=== PATIENT | male | born 1960 | race Caucasian/White ===

== ENCOUNTER 2022-03-22 07:50 | Inpatient (IN) | payer MEDICARE, OTHER ==
[~2022-03-22] VITALS: Ht 188 cm; Wt 81.8 kg
[2022-03-22 11:02] LABS: BASOPHILS # (AUTO) 0.1 X10'3 (0-0.2); BASOPHILS % (AUTO) 1.9 % (0-1); EOSINOPHILS # (AUTO) 0.1 X10'3 (0-0.9); EOSINOPHILS % (AUTO) 3.7 % (0-6); HEMATOCRIT 38.9 % (42.0-52.0); HEMOGLOBIN 13.7 g/dl (14.0-17.9); LYMPHOCYTES # (AUTO) 0.6 X10'3 (1.1-4.8); MEAN CORPUSCULAR HEMOGLOBIN 29.2 PG (27.0-31.0); MEAN CORPUSCULAR HGB CONC 35.2 g/dL (33.0-36.5); MONOCYTES # (AUTO) 0.4 X10'3 (0-0.9); MONOCYTES % (AUTO) 10.2 % (2-12); NEUTROPHILS # (AUTO) 2.8 X10'3 (1.8-7.7); NEUTROPHILS % (AUTO) 70.2 % (42-75); PLATELET COUNT 225 X10'3 (140-440); RED BLOOD COUNT 4.68 X10'6 (4.70-6.10); RED CELL DISTRIBUTION WIDTH 13.7 % (11.5-14.5); WHITE BLOOD COUNT 3.9 X10'3 (4.5-11.0)
[2022-03-22 11:23] LABS: APTT 26 SECONDS (22-32)
[2022-03-22 11:25] LABS: ALANINE AMINOTRANSFERASE 14 U/L (12-78); ALBUMIN 3.1 G/DL (3.4-5.0); ALBUMIN/GLOBULIN RATIO 0.9 (1.1-1.5); ALKALINE PHOSPHATASE 122 IU/L (46-116); ANION GAP 3 (8-16); ASPARTATE AMINO TRANSFERASE 19 U/L (10-37); BILIRUBIN,TOTAL 0.6 MG/DL (0.1-1.0); BLOOD UREA NITROGEN 27 MG/DL (7-18); BUN/CREATININE RATIO 15.5 (5.4-32.0); CALCIUM 8.9 MG/DL (8.5-10.1); CHLORIDE 107 MMOL/L (99-107); CREATINE KINASE 31 U/L (39-308); CREATININE 1.74 MG/DL (0.60-1.10); GLUCOSE 133 MG/DL (70-104); POTASSIUM 4.1 MMOL/L (3.5-5.1); SODIUM 139 MMOL/L (135-145); TOTAL CARBON DIOXIDE 29.3 MMOL/L (24-32); TOTAL PROTEIN 6.7 G/DL (6.4-8.2); eGFR 40 ML/MIN
[2022-03-22] MEDS ORDERED: heparin 10,000 units/1 ML INJ IV PRN ×2 (12:55→15:35)
[2022-03-22] MEDS ORDERED: heparin 10,000 units/1 ML INJ IV ONE ×2 (12:55→15:35)
[2022-03-22] MEDS ORDERED: iohexol 350MG/ML 100ml bottle IV ONE (12:59)
[2022-03-22] MEDS: heparin 25,000 UNIT/250ml bag 250 ML IV SCH (14:32)
[2022-03-22] MEDS ORDERED: NO HOME MEDS (15:31)
[2022-03-22] MEDS ORDERED: HYDROcodone/acetaminophen 5mg/325mg tablet PO PRN (15:35)
[2022-03-22] MEDS ORDERED: morphine 2 MG/ML inj. syringe IV PRN ×2 (15:35)
[2022-03-22] MEDS ORDERED: magnesium Cl slow-release 64mg tablet PO PRN (15:35)
[2022-03-22] MEDS ORDERED: magnesium hydroxide 30ml (MOM) UD suspension PO PRN (15:35)
[2022-03-22] MEDS ORDERED: acetaminophen 325mg tablet PO PRN ×2 (15:35)
[2022-03-22] MEDS ORDERED: PERFLUTREN PROTEIN-A MICROSPHR (Optison) 0.22 MG/ML 3ML VIAL IV ONE ×2 (15:35→17:25)
[2022-03-22] MEDS ORDERED: POTASSIUM BICARB 20meq eff tab 20 MEQ TABLET.EFF PO PRN ×2 (15:35)
[2022-03-22] MEDS ORDERED: HYDROcodone/acetaminophen 10/325mg tab PO PRN (15:35)
[2022-03-22] MEDS ORDERED: magnesium 4gm in 100ml NS 100 ML IV PRN (15:35)
[2022-03-22] MEDS ORDERED: mag hydrox/Alum hydrox/simeth 30ml oral suspension PO PRN (15:35)
[2022-03-22] MEDS ORDERED: potassium CL 10mEq/100ml bag 100 ML IV PRN (15:35)
[2022-03-22] MEDS ORDERED: ondansetron/PF 4mg/2ml inj IV PRN (15:35)
[2022-03-22] MEDS ORDERED: metoclopramide 5 mg/ml inj IV PRN (15:35)
[2022-03-22] MEDS ORDERED: heparin 25,000 UNIT/250ml bag 250 ML IV SCH (15:35)
[2022-03-22] MEDS ORDERED: bisacodyl 10mg suppository rectal RC PRN (15:35)
[2022-03-22] MEDS ORDERED: magnesium 2GM in 50ml NS 50 ML IV PRN (15:35)
[2022-03-22] MEDS ORDERED: ondansetron 4mg rapidly disintigrating tab PO PRN (15:35)
[2022-03-22] MEDS: potassium Cl 20mEq in NS 1,000 ML IV SCH (15:35)
[2022-03-22 16:14] LABS: HEMOGLOBIN A1C 6.3 % (4.5-6.2)
[2022-03-22 16:24] LABS: MAGNESIUM 1.8 MG/DL (1.5-2.4); POTASSIUM 4.1 MMOL/L (3.5-5.1)
[2022-03-22] MEDS: normal saline 1000ml 1,000 ML IV SCH (17:12)
[2022-03-22] MEDS: docusate sod 100mg capsule PO SCH (20:00)
[2022-03-22] MEDS: K and/or MAG REPLACEMENT MC SCH (20:00)
[2022-03-22 20:40] VITALS: BP 140/69
[2022-03-22] MEDS ORDERED: temazepam 15mg capsule PO PRN (21:00)
[2022-03-23] MEDS: potassium Cl 20mEq in NS 1,000 ML IV SCH (01:35)
[2022-03-23] MEDS: normal saline 1000ml 1,000 ML IV SCH ×2 (02:40→13:31)
[2022-03-23 03:15] LABS: ALANINE AMINOTRANSFERASE 18 U/L (12-78); ALBUMIN 2.7 G/DL (3.4-5.0); ALBUMIN/GLOBULIN RATIO 0.8 (1.1-1.5); ALKALINE PHOSPHATASE 107 IU/L (46-116); ANION GAP 9 (8-16); ASPARTATE AMINO TRANSFERASE 16 U/L (10-37); BILIRUBIN,TOTAL 0.4 MG/DL (0.1-1.0); BLOOD UREA NITROGEN 25 MG/DL (7-18); BUN/CREATININE RATIO 17.6 (5.4-32.0); CALCIUM 8.5 MG/DL (8.5-10.1); CHLORIDE 107 MMOL/L (99-107); CHOL/HDL RATIO 3.5 (0.00-4.99); CHOLESTEROL 183 MG/DL (0-200); CREATININE 1.42 MG/DL (0.60-1.10); GLUCOSE 121 MG/DL (70-104); HDL CHOLESTEROL 53 MG/DL (35-60); LDL CHOLESTEROL 110 MG/DL (50-100); MAGNESIUM 1.9 MG/DL (1.5-2.4); POTASSIUM 3.6 MMOL/L (3.5-5.1); SODIUM 140 MMOL/L (135-145); TOTAL CARBON DIOXIDE 24.2 MMOL/L (24-32); TRIGLYCERIDES 100 MG/DL (20-135); eGFR 50 ML/MIN
--- NOTE | 2022-03-23 04:08 | NUR ---
2000 RC'D REPORT FROM NANCI VALLADARES IN ED AND ASSUMED CARE OF PATIENT WHEN HE ARRIVED ON UNIT. POSITIONED IN BED AND SKIN CHECK DONE. VITAL SIGNS DOCUMENTED. LUE NOTABLY SWOLLEN BUT PATIENT STATES PAIN ONLY 2/10. SOME SCABS NOTED ON L ARM BUT DRY AND NO DRAINAGE. ORIENTED PATIENT TO UNIT AND CALL LIGHT SYSTEM AND CLIPPED TO PATIENT'S GOWN. MRSA SWAB OBTAINED AND SENT TO LAB. ADMISSION ASSMT COMPLETED.
--- NOTE | 2022-03-23 04:13 | NUR ---
PTT DRAWN IN ED RESULTED AT 2019. PATIENT WAS THERAPEUTIC, REDRAWN PER PROTOCOL AT 0220, RESULTED AT 0245 AND THERAPEUTIC AT 46. NEXT BLOOD DRAW TIMED FOR 0900.
[2022-03-23 06:00] VITALS: BP 134/76
--- NOTE | 2022-03-23 06:24 | NUR ---
Problems reprioritized. Patient report given, questions answered & plan of care reviewed with ASTRID PRUITT.
--- NOTE | 2022-03-23 07:03 | NUR ---
Problems reprioritized. Patient report given, questions answered & plan of care reviewed with ASTRID PRUITT.
[2022-03-23] MEDS: heparin 25,000 UNIT/250ml bag 250 ML IV SCH (07:10)
[2022-03-23] MEDS: docusate sod 100mg capsule PO SCH (07:12)
[2022-03-23] MEDS: K and/or MAG REPLACEMENT MC SCH (08:00)
[2022-03-23 09:38] VITALS: BP 109/70
--- NOTE | 2022-03-23 10:46 | NUR ---
called lab to verify ptt is processing, cyndie shea in lab is working on it.
[2022-03-23] MEDS ORDERED: iohexol 300mg/ml 100ml inj. ONE (10:48)
[2022-03-23 11:06] LABS: MEAN PLATELET VOLUME 7.7 FL (7.4-10.4); WHITE BLOOD COUNT 3.6 X10'3 (4.5-11.0)
[2022-03-23 11:08] LABS: HEMATOCRIT 35.3 % (42.0-52.0); HEMOGLOBIN 12.4 g/dl (14.0-17.9); MEAN CORPUSCULAR HEMOGLOBIN 29.1 PG (27.0-31.0); MEAN CORPUSCULAR VOLUME 83.2 FL (78-98); PLATELET COUNT 225 X10'3 (140-440); RED BLOOD COUNT 4.25 X10'6 (4.70-6.10); RED CELL DISTRIBUTION WIDTH 13.8 % (11.5-14.5)
--- NOTE | 2022-03-23 11:35 | NUR ---
Per RN supervisor laboratory animal facility, Heparin stopped for patients CT exam, pts latest PTT results theraputic at 45. Primary rn will resume heparin once patient is back in room.
--- NOTE | 2022-03-23 11:54 | NUR ---
Patient back on floor heparin resumed.
[2022-03-23 12:07] LABS: PLATELET ESTIMATE NORMAL; TOTAL CELLS COUNTED 100
[2022-03-23] MEDS ORDERED: APIX5TAB3 PO (16:50)
--- NOTE | 2022-03-23 18:00 | NUR ---
Patient discharged at 1800 in stable condition. Belongings sent with patient. Iv's removed tip intact no complications. Pt discharged with to home in stable condition.
--- NOTE | 2022-04-01 14:21 | NUR ---
Case Management DC follow up: Spoke with Patient and his via telephone. S/P: Patient Reports:. Denies: Acute/continuous CP, emergent SOB, resp distress, orthopnea, dyspnea, N/V, vertigo, syncope episodes, ALFREDO, blurry vision, s/s of stroke/BE-FAST, bladder pain, dysuria, hematuria, retention,abdominal pain/distention, hematochezia, melena, unexplained bruising, bleeding, fever, chills.However,complains of polyuria, and gel like firmness across his lower abdomen that is new.Verbalizes the swelling at his arm with the DVT has remained the same.Verbalizes he is taking his Eliquis (Apixaban) as ordered.Verbalizes he has not heard from [facility], and unable to secure an appointment with Dr. Mustafa at this time.Verbalizes he and his are driving back to [place] from a visit in [place] .Encouraged Patient to go to a ED while on their way back to [place] and/or return to [facility] ED.Verbalizes their plan is to return to [facility] and have his arm, and lower abdomen assessed. I telephoned [facility], and was apprised they are in the process of accessing Patient's [facility] records via portal. Spoke with Mrs. Nicole, apprised her she should be hearing from [facility] by the end of the week.
--- NOTE | 2022-04-02 10:55 | NUR ---
Case Management DC follow up continued: Spoke with Patient's via telephone this am.Verbalizes her had turned in packet to Dr. Mustafa's office, and was told it would be at least three weeks before he can be seen.I telephoned 's office and explained Patient's current condition and referral from .Apprised Mrs. Nicole 's office will be calling her today to arrange appointment time.
== END 2022-03-23 18:02 | disposition home or self-care (01) | DRG 299 ==
LOC: ER 07:51 → ED HOLD 15:45 → EDBEDREQ 19:29 → ORTHO 4S 20:35
PROVIDERS: ADMIT Family Medicine; ATTEND Family Medicine
PROC: B32T1ZZ Computerized Tomography (CT Scan) of Left Pulmonary Artery using Low Osmolar Contrast (ICD-10-PCS; principal; 2022-03-22)
PROC: B3201ZZ Computerized Tomography (CT Scan) of Thoracic Aorta using Low Osmolar Contrast (ICD-10-PCS; 2022-03-22)
PROC: B32S1ZZ Computerized Tomography (CT Scan) of Right Pulmonary Artery using Low Osmolar Contrast (ICD-10-PCS; 2022-03-22)
PROC: BW2F1ZZ Computerized Tomography (CT Scan) of Neck using Low Osmolar Contrast (ICD-10-PCS; 2022-03-23)
DX: I82.622 Acute embolism and thrombosis of deep veins of left upper extremity (principal); N17.0 Acute kidney failure with tubular necrosis; I12.9 Hypertensive chronic kidney disease with stage 1 through stage 4 chronic kidney disease, or unspecified chronic kidney disease; N18.9 Chronic kidney disease, unspecified; R59.0 Localized enlarged lymph nodes; R73.03 Prediabetes; Z87.891 Personal history of nicotine dependence; Z92.3 Personal history of irradiation; Z72.89 Other problems related to lifestyle
CPT/HCPCS: 36415; 70491; 70553; 71045; 71275; 80053; 80061; 82550; 83036; 83735; 84132; 84443; 85007; 85025; 85610; 85730; 87081; 93306; 93971; 99285; G0378; J1644; J3490; J7030; J7070; Q9956; Q9967

== ENCOUNTER 2022-04-01 14:52 | Emergency (ER) | payer MEDICARE ==
[~2022-04-01] VITALS: Ht 188 cm; Wt 81.0 kg
[~2022-04-01 14:52] MED LIST: APIX5TAB3 PO
[2022-04-01 15:05] VITALS: BP 112/73
== END 2022-04-02 02:58 | disposition left against medical advice (07) ==
LOC: ER 14:52
DX: M79.602 Pain in left arm (principal); Z53.21 Procedure and treatment not carried out due to patient leaving prior to being seen by health care provider

== ENCOUNTER 2022-04-02 06:07 | Emergency (ER) | payer MEDICARE ==
[~2022-04-02] VITALS: Ht 188 cm; Wt 81.8 kg
[2022-04-02 10:20] VITALS: BP 135/84
== END 2022-04-02 11:38 | disposition home or self-care (01) ==
LOC: ER 06:08
DX: I82.722 Chronic embolism and thrombosis of deep veins of left upper extremity (principal); Z79.2 Long term (current) use of antibiotics; Z98.890 Other specified postprocedural states; Z85.9 Personal history of malignant neoplasm, unspecified
CPT/HCPCS: 93971; 99284

== ENCOUNTER 2023-04-17 07:16 | Day surgery (SDC) | payer MEDICARE, OTHER ==
[2023-04-17] VITALS (7 sets, daily range): BP systolic 133–148; BP diastolic 77–87; PULSE 40–60; RESP 14–15; TEMP 98.1; O2SAT 97–98
[~2023-04-17] VITALS: Ht 190.5 cm; Wt 88.1 kg
[2023-04-17] MEDS ORDERED: albumin 25% 100mL bottle x 1 IV PRN (07:45)
[2023-04-17] MEDS ORDERED: MORP-92 PO (07:56)
[2023-04-17] MEDS ORDERED: NALO4SPR3 NAS (08:00)
[2023-04-17] MEDS ORDERED: APIX5TAB3 PO (08:03)
== END 2023-04-17 11:15 | disposition home or self-care (01) ==
LOC: SSTAY O 07:16
PROVIDERS: ATTEND Radiology Diagnostic Radiology
DX: J90 Pleural effusion, not elsewhere classified (principal); F10.20 Alcohol dependence, uncomplicated; Z98.890 Other specified postprocedural states; F17.290 Nicotine dependence, other tobacco product, uncomplicated; Z85.46 Personal history of malignant neoplasm of prostate; Z86.718 Personal history of other venous thrombosis and embolism; Z79.899 Other long term (current) drug therapy; Z79.01 Long term (current) use of anticoagulants; Z85.819 Personal history of malignant neoplasm of unspecified site of lip, oral cavity, and pharynx
CPT/HCPCS: 32555; C1729; J3490; 88108; 88305; 88341; 88342